=== PATIENT | male | born 2000 | race African-American/Black ===

== ENCOUNTER 2022-03-13 22:35 | Emergency (ER) | payer MEDICARE, MEDICAID, SELFPAY ==
[2022-03-13 22:40] VITALS: BP 128/70; PULSE 70; RESP 16; TEMP 36.7; O2SAT 98
[2022-03-13 23:17] LABS: Ethanol < 10 mg/dL (<10)
--- NOTE | 2022-03-13 23:17 | ED.PSYCH ---
HPI - Psych General Chief Complaint: Psychiatric Symptoms <Donna Thomas PA-C - Last Filed: 03/14/22 04:26> Stated Complaint: suicidal thoughts x 3 hours <Donna Thomas PA-C - Last Filed: 03/14/22 04:26> Time Seen by Provider: 03/13/22 23:03 <Donna Thomas PA-C - Last Filed: 03/14/22 04:26> Source: patient <Donna Thomas PA-C - Last Filed: 03/14/22 04:26> Mode of arrival: ambulatory <Donna Thomas PA-C - Last Filed: 03/14/22 04:26> Limitations: no limitations <Donna Thomas PA-C - Last Filed: 03/14/22 04:26> History of Present Illness HPI Narrative: This is a 21-year-old male that presents emergency department for suicidal ideations tonight. Reports no active plan. Has history of anxiety and depression. Reports history of previous psychiatric hospitalizations. He has been taking his medications as prescribed. Denies homicidal ideations or visual or auditory hallucinations. <Donna Thomas PA-C - Last Filed: 03/14/22 04:26> Related Data Home Medications: Home Medications Medication Instructions Recorded Confirmed bupropion HCl 150 mg 24 hr tablet, tablet PO 03/14/22 extended release ziprasidone HCl 20 mg capsule cap PO 03/14/22 <Donna Thomas PA-C - Last Filed: 03/14/22 04:26> Review of Systems Review of Systems: CONSTITUTIONAL: Denies fever PSYCHIATRIC: Reports anxiety and depression. <Donna Thomas PA-C - Last Filed: 03/14/22 04:26> All systems reviewed & are unremarkable except as noted in HPI and below <Donna Thomas PA-C - Last Filed: 03/14/22 04:26> PMFSH Past Medical History Medical History: Medical History (Updated 03/14/22 @ 04:26 by Donna Thomas PA-C) History of anxiety History of depression <Donna Thomas PA-C - Last Filed: 03/14/22 04:26> Social History Social History: Social History (Updated 03/13/22 @ 23:19 by Donna Thomas PA-C) Substance use: never Substance use type: does not use <Donna Thomas PA-C - Last Filed: 03/14/22 04:26> Exam Narrative: GENERAL: Well-appearing, well-nourished, and in no acute distress. HEAD: Normocephalic, atraumatic. EYES: EOMI. CHEST: Clear to auscultation. No respiratory distress. No wheezes rales or rhonchi HEART: Regular rate and rhythm. No murmur heard. Normal peripheral pulses. EXTREMITIES: Normal range of motion. No edema. SKIN: Warm, dry, no rash. NEURO: No focal deficits. Alert and oriented x3. PSYCH: Normal mood and affect <Donna Thomas PA-C - Last Filed: 03/14/22 04:26> Course Vital Signs Vital signs: Vital Signs Temperature 36.7 C 03/13/22 22:40 Pulse Rate 70 03/13/22 22:40 Respiratory Rate 16 03/13/22 22:40 Blood Pressure 128/70 03/13/22 22:40 Pulse Oximetry 98 03/13/22 22:40 Oxygen Delivery Room Air 03/13/22 22:40 Temperature 36.7 C 03/13/22 22:40 Pulse Rate 70 03/13/22 22:40 Respiratory Rate 16 03/13/22 22:40 Blood Pressure 128/70 03/13/22 22:40 Pulse Oximetry 98 03/13/22 22:40 Oxygen Delivery Room Air 03/13/22 22:40 <Donna Thomas PA-C - Last Filed: 03/14/22 04:26> Vital Signs Temperature 36.7 C 03/13/22 22:40 Pulse Rate 70 03/13/22 22:40 Respiratory Rate 16 03/13/22 22:40 Blood Pressure 128/70 03/13/22 22:40 Pulse Oximetry 98 03/13/22 22:40 Oxygen Delivery Room Air 03/13/22 22:40 Temperature 36.7 C 03/13/22 22:40 Pulse Rate 70 03/13/22 22:40 Respiratory Rate 16 03/13/22 22:40 Blood Pressure 128/70 03/13/22 22:40 Pulse Oximetry 98 07/13/22 22:40 Oxygen Delivery Room Air 03/13/22 22:40 <Estella Trujillo MD - Last Filed: 03/14/22 11:29> Transfer Transfer rationale: Patient accepted for transfer to [facility], accepted by Dr. Mckeon. <Estella Trujillo MD - Last Filed: 03/14/22 11:29> Accepting physician: Linda <Estella Trujillo MD - Last Filed: 03/14/22 11:29> MDM - Psych MDM N
[2022-03-13 23:18] LABS: Alanine Aminotransferase 27 U/L (6-50); Albumin Level 4.7 g/dL (3.5-5.1); Alkaline Phosphatase 54 U/L (38-126); Anion Gap 5 mmol/L (8-16); Aspartate Amino Transferase 31 U/L (17-59); Bilirubin,Total 0.7 mg/dL (0.2-1.3); Blood Urea Nitrogen 13 mg/dL (9-20); Calcium 9.3 mg/dL (8.4-10.2); Carbon Dioxide 33 mmol/L (22-30); Chloride 104 mmol/L (98-107); Estimated Glomerular Filt Rate > 60; Glucose 79 mg/dL (65-110); Sodium 142 mmol/L (137-145)
[2022-03-13 23:27] LABS: Basophils Percent Auto 0.8 % (0.2-1.2); Eosinophils Absolute Auto 0.1 K/mm3 (0-0.3); Eosinophils Percent Auto 2.1 % (0-4.4); Hematocrit 39.2 % (42.0-52.0); Hemoglobin 13.1 g/dL (14.0-18.0); Immature Platelet Fraction Pct 17.8 % (0.9-11.2); Lymphocytes Absolute Auto 2.81 K/mm3 (0.9-3.2); Lymphocytes Percent Auto 58.2 % (18.3-44.2); Mean Corpuscular HGB Conc 33.4 g/dl (32-36); Mean Corpuscular Volume 89.7 fl (80-100); Mean Platelet Volume 13.1 fl (7.4-10.4); Monocytes Absolute Auto 0.5 K/mm3 (0.1-0.6); Monocytes Percent Auto 9.3 % (2.6-8.5); Neutrophils Absolute Auto 1.4 K/mm3 (1.3-6.7); Neutrophils Percent Auto 29.6 % (45.5-73.1); Platelet Count Result 157 k/mm3 (150-375); Red Blood Count 4.37 M/mm3 (4.6-6.20); Red Cell Distribution Width 13.7 % (11.5-14.5); White Blood Count 4.8 K/mm3 (4.5-10.0)
[2022-03-13 23:42] LABS: Appearance Urine Clear (Clear); Bilirubin Urine Negative (Negative); Blood Urine Negative (Negative); Color Urine Yellow (Yellow); Glucose Urine UA Negative (Negative); Ketones Urine Trace mg/dL (Negative); Leukocyte Esterase Ur Negative LEU/UL (Negative); Nitrate Urine Negative (Negative); Protein Urine Negative (Negative); Specific Grav Ur 1.025 (1.001-1.035)
[2022-03-13 23:43] LABS: SARS-CoV-2 RNA PCR Negative
[2022-03-13 23:50] LABS: Mucus Urine Rare /lpf; RBC Urine 0-2 /hpf (0-2); Squamous Epithelial Cell Urine Rare /hpf (Few); WBC Urine 0-3 /hpf
[2022-03-13 23:51] LABS: Add Urine Microscopic? YES
--- NOTE | 2022-03-14 | PC.NURSE ---
per ERICA spivey need at pt bedside. sitter at bedside
[2022-03-14 00:05] LABS: Amphetamine Screen Urine Negative (Negative); Barbiturate Screen Urine Negative (Negative); Benzodiazepines Screen Urine Negative (Negative); Cannabinoid Screen Urine Negative (Negative); Cocaine Screen Urine Negative (Negative); Methadone Screen Urine Negative (Negative); Opiate Screen Urine Negative (Negative); Phencyclidine Screen Urine Negative (Negative)
--- NOTE | 2022-03-14 07:48 | PC.NURSE ---
Pt is currently sleeping. Sitter at bedside. Room is safe
--- NOTE | 2022-03-14 08:26 | PC.NURSE ---
Annita from [facility] called stating that pt is accepted but there are no beds currently available. Will call when a bed is ready for pt.
--- NOTE | 2022-03-14 10:05 | PC.NURSE ---
Annita from [facility] called and states that pt has a bed available.
--- NOTE | 2022-03-14 10:13 | PC.NURSE ---
[facility] accepted BLS transport to [place] ETA 11:00 trip# [phone]
--- NOTE | 2022-03-14 10:17 | PC.NURSE ---
Called to give report at 10:08 spoke with Feng who placed me on hold, was then transferred to Tamela @ 10:16 and was told to hold on. Was then transferred to Monika @ 10;17 who states can you give us a few minutes to get this straightened out and we will call you back .
== END 2022-03-14 12:16 ==
PROVIDERS: Emergency Provider Emergency Medicine
DX: R45.851 Suicidal ideations (principal); F41.9 Anxiety disorder, unspecified; F32.9 Major depressive disorder, single episode, unspecified; Z20.822 Contact with and (suspected) exposure to COVID-19; Z79.899 Other long term (current) drug therapy
CPT/HCPCS: 36415; 80053; 80307; 81001; 84443; 85025; 85055; 99285; C9803; U0003; U0005